=== PATIENT | female | born 1990 ===

== ENCOUNTER 2016-05-16 19:47 | Emergency (ER) | payer SELFPAY ==
--- NOTE | 2016-05-16 21:00 | ED PDOC ---
HPI: CCC, URI, Sore Throat Time Seen by Provider: 05/16/16 20:58 Chief Complaint (Nursing): Cough, Cold, Congestion Chief Complaint (Provider): cough History Per: Patient History/Exam Limitations: no limitations Additional Complaint(s): 25yo F in ED for eval of cough with some sputum production persistent in past week but intermittent x month with pleuritic chest pain and subjective fever and chills. denies sore throat , ear pain [place], dizziness or malaise. Past Medical History Reviewed: Historical Data, Nursing Documentation, Vital Signs Vital Signs: Last Vital Signs Temp 98.1 F 05/16/16 19:57 Pulse 92 H 05/16/16 19:57 Resp 18 05/16/16 19:57 BP 154/78 H 05/16/16 19:57 Pulse Ox 98 05/16/16 21:02 - Medical History PMH: No Chronic Diseases - Surgical History Surgical History: Appendectomy - Family History Family History: States: No Known Family Hx - Home Medications Home Medications: Ambulatory Orders Medication Instructions Recorded Codeine Phosphate/Promethazi 5 ml PO Q6 #80 ml 03/08/14 [Promethazine with Codeine 10 mg/5 ml-6.25 mg/] Guaifenesin/Pseudoephedrne HCl 1 tab PO DAILY PRN #30 ter 03/08/14 [Mucinex D 600 mg-60 mg] Famotidine [Pepcid] 20 mg PO BID PRN #10 tab 05/04/15 Albuterol HFA [Ventolin HFA 90 2 puff IH Q6 #200 puff 05/16/16 mcg/actuation (8 g)] Dextromethorphan Polistirex 30 mg PO BID #100 yuliya.er.12h 05/16/16 [Delsym] - Allergies Allergies/Adverse Reactions: Allergies Allergy/AdvReac Type Severity Reaction Status Date / Time No Known Allergies Allergy Verified 05/03/15 22:40 Review of Systems ROS Statement: Except As Marked, All Systems Reviewed And Found Negative Constitutional: Positive for: Chills. Negative for: Fever Respiratory: Positive for: Cough Physical Exam - Reviewed Nursing Documentation Reviewed: Yes Vital Signs Reviewed: Yes - Physical Exam Appears: Positive for: Well, Non-toxic, No Acute Distress Skin: Positive for: Normal Color, Warm, DRY ENT: Positive for: Normal ENT Inspection Cardiovascular/Chest: Positive for: Regular Rate, Rhythm Respiratory: Positive for: Decreased Breath Sounds (noted to lower lung [place]) . Negative for: Accessory Muscle Use, Crackles, Wheezing, Respiratory Distress Gastrointestinal/Abdominal: Positive for: Normal Exam, Bowel Sounds, Soft Back: Positive for: Normal Inspection Extremity: Positive for: Normal ROM Neurologic/Psych: Positive for: Alert, Oriented - Laboratory Results Urine POC: Negative - ECG O2 Sat by Pulse Oximetry: 98 - Progress ED Course And Treament: will get chest xray Medical Decision Making Medical Decision Making: PT with negative chest xray will be given albuterol inhaler and deslym for cough advised to f.u with on site nurse and engineering technician stable vS and well appearing. Disposition - Clinical Impression Clinical Impression: Cough - Patient ED Disposition Is Patient to be Admitted: No Counseled Patient/Family Regarding: Studies Performed, Diagnosis, Need For Followup, Rx Given - Disposition Disposition: Routine/Home Disposition Time: 21:07 Condition: STABLE Prescriptions: Dextromethorphan Polistirex [Delsym] 30 mg PO BID #100 yuliya.er.12h Albuterol HFA [Ventolin HFA 90 mcg/actuation (8 g)] 2 puff IH Q6 #200 puff Instructions: Acute Bronchitis (ED)
[2016-05-16 21:52] VITALS: BP 122/81; PULSE 88; RESP 16; TEMP 98.2; O2SAT 100
--- NOTE | 2016-05-17 10:37 | RAD ---
HISTORY: Cough. COMPARISON: No prior. TECHNIQUE: Chest PA and lateral FINDINGS: LUNGS: No active pulmonary disease. PLEURA: No significant pleural effusion identified. No pneumothorax apparent. CARDIOVASCULAR: Normal. OSSEOUS STRUCTURES: No significant abnormalities. VISUALIZED UPPER ABDOMEN: Normal. OTHER FINDINGS: None. IMPRESSION: No active disease.
== END 2016-05-16 21:52 | disposition home or self-care (01) ==
LOC: H.ER 19:47
DX: J40 Bronchitis, not specified as acute or chronic (principal); R05 Cough